=== PATIENT | female | born 1950 | race African-American/Black ===

== ENCOUNTER 2020-11-18 15:27 | Inpatient (IN) | payer MEDICARE, MEDICAID ==
[~2020-11-18] VITALS: Ht 160 cm; Wt 101.6 kg
[2020-11-18 16:40] LABS: BASOPHILS % 0.9 % (0.0-2.0); EOSINOPHILS % 3.6 % (0.0-5.0); HEMATOCRIT. 22.9 % (36.0-48.0); HEMOGLOBIN. 7.6 g/dL (12.0-16.0); LYMPHOCYTES % 28.4 % (20.0-50.0); MEAN CORPUSCULAR HEMOGLOBIN 28.3 pg (28.0-32.0); MEAN CORPUSCULAR VOLUME 85.4 fL (81.0-99.0); MEAN PLATELET VOLUME 7.7 fl (7.4-10.4); MONOCYTES % 7.3 % (2.0-8.0); NEUTROPHILS % 59.8 % (40.0-76.0); PLATELET 315 x1000/uL (130-400); RED BLOOD CELL COUNT 2.69 mill/uL (4.2-5.4); RED CELL DISTRIBUTION WIDTH 15.7 % (11.6-14.6)
[2020-11-18 16:49] LABS: CHLORIDE 109 mEq/L (98-107)
[2020-11-18 16:50] LABS: PARTIAL THROMBOPLASTIN TIME 31.6 sec (23.4-31.0); PROTHROMBIN TIME 10.4 sec (9.6-11.0)
[2020-11-18] MEDS ORDERED: SODIUM CHLORIDE 0.9% 1,000 ML IV ONE (17:30)
[2020-11-18] MEDS ORDERED: ACETAMINOPHEN 325MG TABLET PO ONE (18:15)
[2020-11-18] MEDS ORDERED: HYDROCODONE/ACETAMINOPHEN 10/325MG TABLET PO ONE (18:30)
[2020-11-18] MEDS: SODIUM CHLORIDE 0.45% 1,000 ML IV SCH ×2 (19:15→20:40)
[2020-11-18] MEDS ORDERED: ACETAMINOPHEN 325MG TABLET PO PRN (19:15)
[2020-11-18] MEDS ORDERED: ONDANSETRON HCL 4MG/2ML INJ IV PRN (19:15)
[2020-11-18 19:33] LABS: TOTAL IRON BINDING CAPACITY 358 ug/dL (250-450)
[2020-11-18] MEDS: CLONIDINE 0.1MG TABLET PO PRN (20:39)
[2020-11-19] MEDS: HYDROCODONE/ACETAMINOPHEN 5/325MG TABLET PO PRN ×2 (05:03→11:33)
[2020-11-19 05:10] LABS: BASOPHILS % 0.8 % (0.0-2.0); HEMATOCRIT. 24.7 % (36.0-48.0); MEAN CORPUSCULAR HEMOGLOBIN 27.4 pg (28.0-32.0); MEAN CORPUSCULAR VOLUME 84.1 fL (81.0-99.0); MONOCYTES % 9.3 % (2.0-8.0); NEUTROPHILS % 54.9 % (40.0-76.0); PLATELET 275 x1000/uL (130-400); RED BLOOD CELL COUNT 2.93 mill/uL (4.2-5.4)
[2020-11-19 05:13] LABS: CHLORIDE 110 mEq/L (98-107)
[2020-11-19 05:28] LABS: LDL CHOLESTEROL 31 mg/dL (5-100)
[2020-11-19 05:29] LABS: HDL CHOLESTEROL 81 mg/dL (40-59)
[2020-11-19 09:30] VITALS: BP 134/68
[2020-11-19] MEDS ORDERED: *PATIENT'S OWN MEDICATION STORAGE XX SCH (11:15)
[2020-11-19 12:00] VITALS: BP 176/80
[2020-11-19] MEDS ORDERED: ESOM40CA53 MT (12:11)
[2020-11-19] MEDS ORDERED: QUET300T2 MT (12:11)
[2020-11-19] MEDS ORDERED: HYDR25TA MT (12:11)
[2020-11-19] MEDS ORDERED: LOSA100T32 MT (12:11)
[2020-11-19] MEDS ORDERED: TIZA4TAB5 MT (12:11)
[2020-11-19] MEDS ORDERED: HYDR-4001 PO (12:11)
[2020-11-19] MEDS ORDERED: HYDR100T26 PO (12:11)
[2020-11-19] MEDS ORDERED: CRES10 MT (12:11)
[2020-11-19] MEDS ORDERED: BUPR100T13 PO (12:11)
[2020-11-19] MEDS ORDERED: CLON2TAB21 MT (12:11)
[2020-11-19] MEDS: CLONIDINE 0.1MG TABLET PO PRN (13:17)
[2020-11-19] MEDS: FERROUS SULFATE 325MG TABLET PO SCH ×2 (13:17→18:55)
[2020-11-19] MEDS: SODIUM CHLORIDE 0.45% 1,000 ML IV SCH (13:18)
[2020-11-19 16:00] VITALS: BP 136/51
[2020-11-19] MEDS: AMLODIPINE 5MG TABLET PO SCH (18:56)
[2020-11-19 20:00] VITALS: BP 146/66
[2020-11-19] MEDS ORDERED: QUETIAPINE FUMARATE 50MG TABLET PO SCH (21:00)
[2020-11-19] MEDS ORDERED: CLONAZEPAM 1MG TABLET PO SCH (21:00)
[2020-11-20] VITALS: BP 143/98
[2020-11-20 04:00] VITALS: BP 135/63
[2020-11-20] MEDS: SODIUM CHLORIDE 0.45% 1,000 ML IV SCH (04:43)
[2020-11-20] MEDS: HYDROCODONE/ACETAMINOPHEN 5/325MG TABLET PO PRN ×2 (06:20→12:28)
[2020-11-20 07:22] LABS: FOLIC ACID (FOLATE) SERUM 6.8 ng/mL (>5.38)
[2020-11-20 08:00] VITALS: BP 125/74
[2020-11-20] MEDS: FERROUS SULFATE 325MG TABLET PO SCH ×2 (08:15→12:14)
[2020-11-20] MEDS: AMLODIPINE 5MG TABLET PO SCH (08:15)
[2020-11-20] MEDS ORDERED: ASCORBIC ACID 500 MG TABLET PO SCH (11:45)
[2020-11-20 12:00] VITALS: BP 135/63
[2020-11-20 13:11] LABS: EOSINOPHILS % 4.5 % (0.0-5.0); HEMATOCRIT. 25.8 % (36.0-48.0); HEMOGLOBIN. 8.5 g/dL (12.0-16.0); LYMPHOCYTES % 36.5 % (20.0-50.0); MEAN PLATELET VOLUME 7.2 fl (7.4-10.4); MONOCYTES % 10.4 % (2.0-8.0); NEUTROPHILS % 47.6 % (40.0-76.0); PLATELET 290 x1000/uL (130-400); RED BLOOD CELL COUNT 3.03 mill/uL (4.2-5.4); RED CELL DISTRIBUTION WIDTH 15.9 % (11.6-14.6)
[2020-11-20 13:23] VITALS: BP 125/72
[2020-11-20 16:00] VITALS: BP 140/61
== END 2020-11-20 17:10 | disposition home or self-care (01) | DRG 812 ==
LOC: ER 15:27 → MICUSO 19:23 → EDBEDREQTM 19:25 → EDBEDREQ 19:25 → EDBEDREQSVC 19:25 → 6EST 11-19 07:11
PROVIDERS: ADMIT Internal Medicine Nephrology; ATTEND Internal Medicine Nephrology
PROC: 30233N1 Transfusion of Nonautologous Red Blood Cells into Peripheral Vein, Percutaneous Approach (ICD-10-PCS; principal; 2020-11-18)
DX: D50.9 Iron deficiency anemia, unspecified (principal); N18.4 Chronic kidney disease, stage 4 (severe); E83.51 Hypocalcemia; E88.09 Other disorders of plasma-protein metabolism, not elsewhere classified; E78.5 Hyperlipidemia, unspecified; I12.9 Hypertensive chronic kidney disease with stage 1 through stage 4 chronic kidney disease, or unspecified chronic kidney disease; E78.00 Pure hypercholesterolemia, unspecified; Z79.899 Other long term (current) drug therapy; Z96.653 Presence of artificial knee joint, bilateral; D63.1 Anemia in chronic kidney disease
CPT/HCPCS: 36415; 71045; 80053; 80061; 82270; 82607; 82728; 82746; 83540; 83550; 84484; 85025; 85044; 86850; 86900; 86920; 93005; 93306; 93970; 97161; 97166; 99291; J2405; J7030; P9016

== ENCOUNTER → 2021-01-31 | Outpatient (CLI) | payer MEDICARE, MEDICAID ==
[~2021-01-31] MED LIST: BUPR100T13 PO; CLON2TAB21 MT; CRES10 MT; ESOM40CA53 MT; HYDR-4001 PO; HYDR100T26 PO; HYDR25TA MT; LOSA100T32 MT; QUET300T2 MT; TIZA4TAB5 MT
== END | disposition home or self-care (01) ==
LOC: RAD 14:55
PROVIDERS: ATTEND Internal Medicine Hematology & Oncology
DX: M43.12 Spondylolisthesis, cervical region (principal); J44.9 Chronic obstructive pulmonary disease, unspecified; M47.814 Spondylosis without myelopathy or radiculopathy, thoracic region; M47.812 Spondylosis without myelopathy or radiculopathy, cervical region; I51.7 Cardiomegaly; D47.2 Monoclonal gammopathy; D63.1 Anemia in chronic kidney disease; N18.30 Chronic kidney disease, stage 3 unspecified; Z96.651 Presence of right artificial knee joint
CPT/HCPCS: 77075

== ENCOUNTER 2021-08-01 15:36 | Emergency (ER) | payer MEDICARE, MEDICAID ==
[~2021-08-01] VITALS: Ht 160 cm; Wt 97.0 kg
[2021-08-01 15:41] VITALS: BP 170/58
== END 2021-08-02 01:55 | disposition left against medical advice (07) ==
LOC: ER 15:36 → SUPCPDRO 20:47 → ER 08-02 01:55
DX: Z53.21 Procedure and treatment not carried out due to patient leaving prior to being seen by health care provider (principal)

== ENCOUNTER 2021-09-26 12:56 | Inpatient (IN) | payer MEDICARE, MEDICAID ==
[~2021-09-26] VITALS: Ht 162.6 cm; Wt 92.6 kg
[2021-09-26 14:45] LABS: BASOPHILS % 0.5 % (0.0-2.0); HEMATOCRIT. 34.4 % (36.0-48.0); HEMOGLOBIN. 11.4 g/dL (12.0-16.0); LYMPHOCYTES % 8.7 % (20.0-50.0); MEAN CORPUSCULAR HEMOGLOBIN 30.1 pg (28.0-32.0); MEAN CORPUSCULAR VOLUME 91.2 fL (81.0-99.0); MEAN PLATELET VOLUME 8.3 fl (7.4-10.4); MONOCYTES % 3.6 % (2.0-8.0); NEUTROPHILS % 87.2 % (40.0-76.0); PLATELET 246 x1000/uL (130-400); RED BLOOD CELL COUNT 3.77 mill/uL (4.2-5.4); RED CELL DISTRIBUTION WIDTH 17.6 % (11.6-14.6)
[2021-09-26 16:13] LABS: CHLORIDE 112 mEq/L (98-107)
[2021-09-26] MEDS ORDERED: DEXAMETHASONE 10 MG/ML VIAL IV NR (17:00)
[2021-09-26] MEDS ORDERED: VANCOMYCIN 1 G PREMIX 200 ML IV ONE (17:30)
[2021-09-26] MEDS ORDERED: PIPERACILLIN/TAZ 3.375G PREMIX 50 ML IV ONE (17:30)
[2021-09-26] MEDS ORDERED: AZITHROMYCIN 500 MG in DEXT 5% WATER 250 ML IV SCH (17:45)
[2021-09-26] MEDS ORDERED: NA PHOS,M-B/NA PHOS,DI-BA ENEMA 118ML PR PRN (17:45)
[2021-09-26] MEDS ORDERED: CEFTRIAXONE 1 G PREMIX 50 ML IV NR (17:45)
[2021-09-26] MEDS ORDERED: IPRATROPIUM/ALBUTEROL 0.5-3(2.5)MG/3ML NEB HHN PRN (17:45)
[2021-09-26] MEDS ORDERED: ENOXAPARIN 40MG/0.4ML SYR SUBCUT SCH (17:45)
[2021-09-26] MEDS ORDERED: DOCUSATE SODIUM 100MG CAPSULE PO PRN (17:45)
[2021-09-26] MEDS ORDERED: AZITHROMYCIN 500MG/250ML 250 ML IV NR (18:00)
[2021-09-26] MEDS: METHYLPREDNISOLONE SOD SUCC 125 MG/2 ML VIAL IV SCH (19:40)
[2021-09-26] MEDS: ENOXAPARIN 30MG/0.3ML SYR SUBCUT SCH (19:44)
[2021-09-26 20:49] LABS: CLARITY URINE CLOUDY (CLEAR); COLOR URINE YELLOW (YELLOW); KETONES URINE NEGATIVE (NEGATIVE); LEUKOCYTE ESTERASE URINE 1+ (NEGATIVE); NITRITE URINE NEGATIVE (NEGATIVE); OCCULT BLOOD URINE NEGATIVE (NEGATIVE); PROTEIN URINE 2+ (NEGATIVE); SPECIFIC GRAVITY URINE 1.021 (1.005-1.030)
[2021-09-27] VITALS: BP 144/58
[2021-09-27] MEDS ORDERED: BACL-141 (01:30)
[2021-09-27] MEDS ORDERED: DILT240C96 (01:30)
[2021-09-27] MEDS ORDERED: DICL75TA5 (01:30)
[2021-09-27] MEDS ORDERED: SUMA50TA16 (01:30)
[2021-09-27] MEDS ORDERED: CLON0.2T (01:30)
[2021-09-27] MEDS ORDERED: OXCA300T31 (01:30)
[2021-09-27] MEDS ORDERED: FAMO20TA8 (01:30)
[2021-09-27] MEDS ORDERED: MIRA50TA (01:30)
[2021-09-27] MEDS ORDERED: FURO20TA4 (01:30)
[2021-09-27] MEDS: METHYLPREDNISOLONE SOD SUCC 125 MG/2 ML VIAL IV SCH ×3 (02:22→11:41)
[2021-09-27 04:00] VITALS: BP 138/62
[2021-09-27 08:00] VITALS: BP 160/77
[2021-09-27] MEDS ORDERED: AZITHROMYCIN 500MG in DEXTROSE 5% WATER 250ML IV SCH (10:00)
[2021-09-27] MEDS ORDERED: CEFTRIAXONE 1,000 MG in DEXTROSE 5% WATER 50 ML IV SCH (11:00)
[2021-09-27 11:27] LABS: BASOPHILS % 0.4 % (0.0-2.0); HEMATOCRIT. 33.6 % (36.0-48.0); HEMOGLOBIN. 11.2 g/dL (12.0-16.0); LYMPHOCYTES % 8.2 % (20.0-50.0); MEAN CORPUSCULAR HEMOGLOBIN 30.6 pg (28.0-32.0); MEAN CORPUSCULAR VOLUME 91.7 fL (81.0-99.0); NEUTROPHILS % 88.4 % (40.0-76.0); PLATELET 277 x1000/uL (130-400); RED BLOOD CELL COUNT 3.67 mill/uL (4.2-5.4); RED CELL DISTRIBUTION WIDTH 18.4 % (11.6-14.6)
[2021-09-27 11:35] LABS: CHLORIDE 112 mEq/L (98-107)
[2021-09-27] MEDS: CLONIDINE 0.1MG TABLET PO PRN ×2 (11:45→18:01)
[2021-09-27 12:00] VITALS: BP 158/79
[2021-09-27] MEDS ORDERED: AMLODIPINE 5MG TABLET PO NR (13:45)
[2021-09-27] MEDS: DEXAMETHASONE 10 MG/ML VIAL IV SCH (13:54)
[2021-09-27] MEDS: FUROSEMIDE 40MG/4ML VIAL IVP SCH (13:54)
[2021-09-27] MEDS ORDERED: GUAIFENESIN-DM 200MG-20MG/10ML UDC PO PRN (14:15)
[2021-09-27 16:00] VITALS: BP 162/78
[2021-09-27] MEDS: CEFTRIAXONE 1,000 MG in DEXTROSE 5% WATER 50 ML IV SCH (18:02)
[2021-09-27] MEDS: ENOXAPARIN 30MG/0.3ML SYR SUBCUT SCH (18:02)
[2021-09-27] MEDS: ACETAMINOPHEN 325MG TABLET PO PRN (18:02)
[2021-09-27 20:00] VITALS: BP 154/71
[2021-09-27] MEDS: AZITHROMYCIN 500MG in DEXTROSE 5% WATER 250ML IV SCH (20:23)
[2021-09-27] MEDS: AMLODIPINE 5MG TABLET PO SCH (23:04)
[2021-09-28] VITALS: BP 143/63
[2021-09-28 04:00] VITALS: BP 147/70
[2021-09-28 08:00] VITALS: BP 158/80
[2021-09-28 08:30] LABS: HEMATOCRIT. 35.4 % (36.0-48.0); MEAN CORPUSCULAR HEMOGLOBIN 30.8 pg (28.0-32.0); MEAN CORPUSCULAR VOLUME 90.7 fL (81.0-99.0); MEAN PLATELET VOLUME 8.1 fl (7.4-10.4); PLATELET 348 x1000/uL (130-400); RED CELL DISTRIBUTION WIDTH 18.1 % (11.6-14.6)
[2021-09-28 08:38] LABS: CHLORIDE 114 mEq/L (98-107)
[2021-09-28] MEDS: FUROSEMIDE 40MG/4ML VIAL IVP SCH (08:42)
[2021-09-28] MEDS: DEXAMETHASONE 10 MG/ML VIAL IV SCH (08:42)
[2021-09-28] MEDS: AMLODIPINE 5MG TABLET PO SCH ×2 (08:43→20:57)
[2021-09-28 11:41] VITALS: BP 171/86
[2021-09-28] MEDS: CLONIDINE 0.1MG TABLET PO PRN (11:44)
[2021-09-28 15:48] VITALS: BP 175/81
[2021-09-28] MEDS: CEFTRIAXONE 1,000 MG in DEXTROSE 5% WATER 50 ML IV SCH (17:03)
[2021-09-28] MEDS: CLONIDINE 0.1MG TABLET PO SCH (17:03)
[2021-09-28] MEDS: ENOXAPARIN 30MG/0.3ML SYR SUBCUT SCH (17:03)
[2021-09-28 18:08] LABS: PLATELET ESTIMATE NORMAL
[2021-09-28] MEDS: AZITHROMYCIN 500MG in DEXTROSE 5% WATER 250ML IV SCH (20:00)
[2021-09-28] MEDS: ACETAMINOPHEN 325MG TABLET PO PRN (20:45)
[2021-09-29] VITALS: BP 130/75
[2021-09-29] MEDS: CLONIDINE 0.1MG TABLET PO SCH ×4 (02:00→21:07)
[2021-09-29 04:00] VITALS: BP 134/85
[2021-09-29 07:08] LABS: BASOPHILS % 0.1 % (0.0-2.0); HEMATOCRIT. 36.1 % (36.0-48.0); HEMOGLOBIN. 12.1 g/dL (12.0-16.0); LYMPHOCYTES % 7.7 % (20.0-50.0); MEAN CORPUSCULAR HEMOGLOBIN 30.6 pg (28.0-32.0); MEAN CORPUSCULAR VOLUME 91.2 fL (81.0-99.0); MONOCYTES % 6.8 % (2.0-8.0); NEUTROPHILS % 85.4 % (40.0-76.0); PLATELET 348 x1000/uL (130-400); RED BLOOD CELL COUNT 3.96 mill/uL (4.2-5.4); RED CELL DISTRIBUTION WIDTH 17.7 % (11.6-14.6)
[2021-09-29 08:00] VITALS: BP 165/87
[2021-09-29] MEDS: FUROSEMIDE 40MG/4ML VIAL IVP SCH (08:54)
[2021-09-29] MEDS: DEXAMETHASONE 10 MG/ML VIAL IV SCH (08:55)
[2021-09-29] MEDS: AMLODIPINE 5MG TABLET PO SCH ×2 (09:22→21:07)
[2021-09-29] MEDS: SODIUM CHLORIDE 0.45% 1,000 ML IV SCH ×2 (10:21→21:07)
[2021-09-29 12:00] VITALS: BP 136/66
[2021-09-29] MEDS: ACETAMINOPHEN 325MG TABLET PO PRN (14:44)
[2021-09-29 16:00] VITALS: BP 175/79
[2021-09-29] MEDS: ENOXAPARIN 40MG/0.4ML SYR SUBCUT SCH (17:00)
[2021-09-29] MEDS: CEFTRIAXONE 1,000 MG in DEXTROSE 5% WATER 50 ML IV SCH (18:23)
[2021-09-29 20:00] VITALS: BP 135/62
[2021-09-29] MEDS: AZITHROMYCIN 500MG in DEXTROSE 5% WATER 250ML IV SCH (21:06)
[2021-09-30] VITALS: BP 129/66
[2021-09-30 04:00] VITALS: BP 147/69
[2021-09-30] MEDS: CLONIDINE 0.1MG TABLET PO SCH ×3 (06:09→20:33)
[2021-09-30 08:23] LABS: BASOPHILS % 0.3 % (0.0-2.0); EOSINOPHILS % 0.1 % (0.0-5.0); HEMATOCRIT. 34.4 % (36.0-48.0); HEMOGLOBIN. 11.5 g/dL (12.0-16.0); LYMPHOCYTES % 11.4 % (20.0-50.0); MEAN CORPUSCULAR HEMOGLOBIN 30.5 pg (28.0-32.0); MEAN CORPUSCULAR VOLUME 91.2 fL (81.0-99.0); MEAN PLATELET VOLUME 7.6 fl (7.4-10.4); MONOCYTES % 5.1 % (2.0-8.0); NEUTROPHILS % 83.1 % (40.0-76.0); PLATELET 250 x1000/uL (130-400); RED BLOOD CELL COUNT 3.77 mill/uL (4.2-5.4); RED CELL DISTRIBUTION WIDTH 17.2 % (11.6-14.6)
[2021-09-30] MEDS: DEXAMETHASONE 10 MG/ML VIAL IV SCH (08:48)
[2021-09-30] MEDS: AMLODIPINE 5MG TABLET PO SCH ×2 (09:13→20:33)
[2021-09-30] MEDS ORDERED: POTASSIUM CHLORIDE 20MEQ/PACKET PO NR (09:45)
[2021-09-30 09:50] LABS: PHOSPHORUS 1.7 mg/dL (2.5-4.9)
[2021-09-30] MEDS: SODIUM CHLORIDE 0.45% 1,000 ML IV SCH (10:30)
[2021-09-30] MEDS: ACETAMINOPHEN 325MG TABLET PO PRN ×2 (11:03→20:35)
[2021-09-30 12:00] VITALS: BP 155/75
[2021-09-30] MEDS ORDERED: SODIUM PHOS,M-BASIC-D-BASIC 15 MM in DEXT 5% WATER 245 ML IV NR (14:30)
[2021-09-30 16:00] VITALS: BP 150/78
[2021-09-30] MEDS: CEFTRIAXONE 1,000 MG in DEXTROSE 5% WATER 50 ML IV SCH (17:06)
[2021-09-30] MEDS: ENOXAPARIN 40MG/0.4ML SYR SUBCUT SCH (17:08)
[2021-09-30 20:00] VITALS: BP 166/77
[2021-09-30] MEDS: AZITHROMYCIN 500MG in DEXTROSE 5% WATER 250ML IV SCH (20:32)
[2021-10-01] VITALS: BP 122/52
[2021-10-01] MEDS: SODIUM CHLORIDE 0.45% 1,000 ML IV SCH (01:52)
[2021-10-01 04:00] VITALS: BP 115/61
[2021-10-01] MEDS: FUROSEMIDE 40MG/4 ML UDC PO SCH ×2 (04:44→08:48)
[2021-10-01] MEDS: CLONIDINE 0.1MG TABLET PO SCH ×3 (06:07→21:32)
[2021-10-01 08:00] VITALS: BP 143/69
[2021-10-01 08:13] LABS: BASOPHILS % 0.2 % (0.0-2.0); HEMATOCRIT. 34.6 % (36.0-48.0); HEMOGLOBIN. 11.6 g/dL (12.0-16.0); LYMPHOCYTES % 9.7 % (20.0-50.0); MEAN CORPUSCULAR HEMOGLOBIN 30.3 pg (28.0-32.0); MEAN CORPUSCULAR VOLUME 90.4 fL (81.0-99.0); MEAN PLATELET VOLUME 7.9 fl (7.4-10.4); MONOCYTES % 3.3 % (2.0-8.0); NEUTROPHILS % 85.8 % (40.0-76.0); PLATELET 180 x1000/uL (130-400); RED BLOOD CELL COUNT 3.83 mill/uL (4.2-5.4); RED CELL DISTRIBUTION WIDTH 17.2 % (11.6-14.6)
[2021-10-01 08:31] LABS: CHLORIDE 109 mEq/L (98-107)
[2021-10-01 08:38] LABS: PHOSPHORUS 1.7 mg/dL (2.5-4.9)
[2021-10-01 08:40] LABS: BG BASE EXCESS 2.3 mmol/L (-2.0-2.0); BG CARBOXYHEMOGLOBIN 0.4 % (0.5-1.5); BG DEOXYHEMOGLOBIN 3.5 % (0.0-5.0); BG FRACTION INSPIRED OXYGEN 100; BG METHEMOGLOBIN 0.3 % (0.0-1.5); BG OXYGEN SATURATION 96.5 % (92.0-98.5); BG OXYHEMOGLOBIN 95.8 % (94.0-97.0); BG PCO2 37.4 mmHg (35.0-45.0); BG PO2 83.2 mmHg (75.0-100.0); BG SAMPLE SITE RIGHT RADIAL; BG TOTAL HEMOGLOBIN 12.7 g/dL (12.0-18.0); BG VENT MODE MASK - NRB
[2021-10-01] MEDS: AMLODIPINE 5MG TABLET PO SCH ×2 (08:48→21:32)
[2021-10-01] MEDS: DEXAMETHASONE 10 MG/ML VIAL IV SCH (08:48)
[2021-10-01] MEDS ORDERED: LOPERAMIDE HCL 2MG CAPSULE PO PRN (11:00)
[2021-10-01] MEDS: ACETAMINOPHEN 325MG TABLET PO PRN (11:01)
[2021-10-01 12:00] VITALS: BP 122/53
[2021-10-01] MEDS ORDERED: SODIUM PHOS,M-BASIC-D-BASIC 15 MM in DEXT 5% WATER 245 ML IV SCH (12:00)
[2021-10-01] MEDS: ENOXAPARIN 40MG/0.4ML SYR SUBCUT SCH (17:49)
[2021-10-01] MEDS: CEFTRIAXONE 1,000 MG in DEXTROSE 5% WATER 50 ML IV SCH (17:51)
[2021-10-01] MEDS: TRAMADOL 50MG TABLET PO PRN (17:52)
[2021-10-01 20:00] VITALS: BP 144/61
[2021-10-02 00:13] VITALS: BP 131/51
[2021-10-02 04:00] VITALS: BP 157/74
[2021-10-02] MEDS: CLONIDINE 0.1MG TABLET PO SCH ×3 (06:12→21:03)
[2021-10-02 08:00] VITALS: BP 114/60
[2021-10-02] MEDS: FUROSEMIDE 40MG/4 ML UDC PO SCH (08:26)
[2021-10-02] MEDS: AMLODIPINE 5MG TABLET PO SCH ×2 (08:26→21:04)
[2021-10-02] MEDS: DEXAMETHASONE 10 MG/ML VIAL IV SCH (08:26)
[2021-10-02 12:00] VITALS: BP 135/64
[2021-10-02 12:21] LABS: CHLORIDE 107 mEq/L (98-107); HEMATOCRIT. 36.6 % (36.0-48.0); HEMOGLOBIN. 11.9 g/dL (12.0-16.0); MEAN CORPUSCULAR HEMOGLOBIN 29.6 pg (28.0-32.0); MEAN CORPUSCULAR VOLUME 91.1 fL (81.0-99.0); MEAN PLATELET VOLUME 8.6 fl (7.4-10.4); PLATELET 131 x1000/uL (130-400); RED BLOOD CELL COUNT 4.02 mill/uL (4.2-5.4); RED CELL DISTRIBUTION WIDTH 17.1 % (11.6-14.6)
[2021-10-02 14:00] LABS: PLATELET ESTIMATE NORMAL
[2021-10-02] MEDS: TRAMADOL 50MG TABLET PO PRN (14:27)
[2021-10-02 16:00] VITALS: BP 134/65
[2021-10-02] MEDS: CEFTRIAXONE 1,000 MG in DEXTROSE 5% WATER 50 ML IV SCH (17:59)
[2021-10-02] MEDS: ENOXAPARIN 40MG/0.4ML SYR SUBCUT SCH (17:59)
[2021-10-02 20:00] VITALS: BP 134/59
[2021-10-03] VITALS: BP 136/72
[2021-10-03 04:00] VITALS: BP 146/71
[2021-10-03] MEDS: CLONIDINE 0.1MG TABLET PO SCH ×3 (06:32→21:32)
[2021-10-03 08:00] VITALS: BP 118/64
[2021-10-03] MEDS: FUROSEMIDE 40MG/4 ML UDC PO SCH (09:22)
[2021-10-03] MEDS: AMLODIPINE 5MG TABLET PO SCH ×2 (09:22→21:26)
[2021-10-03] MEDS: DEXAMETHASONE 10 MG/ML VIAL IV SCH (09:22)
[2021-10-03 11:08] LABS: BASOPHILS % 0.4 % (0.0-2.0); EOSINOPHILS % 2.9 % (0.0-5.0); HEMATOCRIT. 34.2 % (36.0-48.0); HEMOGLOBIN. 11.2 g/dL (12.0-16.0); LYMPHOCYTES % 9.6 % (20.0-50.0); MEAN CORPUSCULAR HEMOGLOBIN 29.8 pg (28.0-32.0); MEAN CORPUSCULAR VOLUME 91.4 fL (81.0-99.0); MEAN PLATELET VOLUME 9.1 fl (7.4-10.4); MONOCYTES % 5.2 % (2.0-8.0); NEUTROPHILS % 81.9 % (40.0-76.0); RED BLOOD CELL COUNT 3.75 mill/uL (4.2-5.4); RED CELL DISTRIBUTION WIDTH 17.3 % (11.6-14.6)
[2021-10-03 11:12] LABS: PLATELET 261 x1000/uL (130-400)
[2021-10-03 12:00] VITALS: BP 123/54
[2021-10-03] MEDS: TRAMADOL 50MG TABLET PO PRN (13:20)
[2021-10-03] MEDS ORDERED: NALOXONE HCL 0.4MG/ML VIAL IV PRN (13:45)
[2021-10-03 16:00] VITALS: BP 130/58
[2021-10-03] MEDS: ENOXAPARIN 40MG/0.4ML SYR SUBCUT SCH (18:53)
[2021-10-03 20:00] VITALS: BP 135/50
[2021-10-03] MEDS: HYDROCODONE/ACETAMINOPHEN 5/325MG TABLET PO PRN (21:28)
[2021-10-04] VITALS: BP 133/54
[2021-10-04 04:00] VITALS: BP 122/62
[2021-10-04] MEDS: CLONIDINE 0.1MG TABLET PO SCH ×3 (06:31→22:00)
[2021-10-04 08:02] VITALS: BP 111/63
[2021-10-04] MEDS: FUROSEMIDE 40MG/4 ML UDC PO SCH (08:47)
[2021-10-04] MEDS: DEXAMETHASONE 10 MG/ML VIAL IV SCH (08:47)
[2021-10-04] MEDS: AMLODIPINE 5MG TABLET PO SCH ×2 (08:48→20:52)
[2021-10-04 12:34] VITALS: BP 122/50
[2021-10-04] MEDS: MAGNESIUM/ALUMINUM HYDROXIDE/SIMETHICONE 30ML UDC PO PRN (12:45)
[2021-10-04 15:42] VITALS: BP 119/66
[2021-10-04] MEDS: HYDROCODONE/ACETAMINOPHEN 5/325MG TABLET PO PRN (16:07)
[2021-10-04] MEDS: ENOXAPARIN 40MG/0.4ML SYR SUBCUT SCH (17:14)
[2021-10-04 20:00] VITALS: BP 109/46
[2021-10-04 21:00] LABS: BASOPHILS % 0.3 % (0.0-2.0); EOSINOPHILS % 0.3 % (0.0-5.0); HEMATOCRIT. 33.8 % (36.0-48.0); LYMPHOCYTES % 7.2 % (20.0-50.0); MEAN CORPUSCULAR VOLUME 91.7 fL (81.0-99.0); MEAN PLATELET VOLUME 9.4 fl (7.4-10.4); MONOCYTES % 5.7 % (2.0-8.0); NEUTROPHILS % 86.5 % (40.0-76.0); PLATELET 306 x1000/uL (130-400); RED BLOOD CELL COUNT 3.68 mill/uL (4.2-5.4); RED CELL DISTRIBUTION WIDTH 16.8 % (11.6-14.6)
[2021-10-04 21:12] LABS: PHOSPHORUS 2.9 mg/dL (2.5-4.9)
[2021-10-05] VITALS: BP 111/56
[2021-10-05 04:00] VITALS: BP 117/61
[2021-10-05] MEDS: CLONIDINE 0.1MG TABLET PO SCH ×3 (06:04→20:20)
[2021-10-05 08:00] VITALS: BP 107/48
[2021-10-05] MEDS: AMLODIPINE 5MG TABLET PO SCH ×2 (09:00→20:20)
[2021-10-05] MEDS: FUROSEMIDE 40MG/4 ML UDC PO SCH (11:46)
[2021-10-05] MEDS: DEXAMETHASONE 10 MG/ML VIAL IV SCH (11:47)
[2021-10-05 12:00] VITALS: BP 151/71
[2021-10-05] MEDS: SODIUM CHLORIDE 0.9% 1,000 ML IV SCH (15:00)
[2021-10-05 16:00] VITALS: BP 143/53
[2021-10-05] MEDS: ENOXAPARIN 40MG/0.4ML SYR SUBCUT SCH (16:18)
[2021-10-05 20:00] VITALS: BP 127/62
[2021-10-05] MEDS: MAGNESIUM/ALUMINUM HYDROXIDE/SIMETHICONE 30ML UDC PO PRN (20:19)
[2021-10-06] VITALS: BP 116/62
[2021-10-06] MEDS: SODIUM CHLORIDE 0.9% 1,000 ML IV SCH (01:55)
[2021-10-06 04:00] VITALS: BP 108/68
[2021-10-06] MEDS: CLONIDINE 0.1MG TABLET PO SCH ×3 (06:00→20:52)
[2021-10-06 06:07] LABS: BASOPHILS % 0.1 % (0.0-2.0); EOSINOPHILS % 0.5 % (0.0-5.0); HEMATOCRIT. 30.1 % (36.0-48.0); HEMOGLOBIN. 10.3 g/dL (12.0-16.0); LYMPHOCYTES % 10.8 % (20.0-50.0); MEAN CORPUSCULAR HEMOGLOBIN 31.2 pg (28.0-32.0); MEAN CORPUSCULAR VOLUME 91.5 fL (81.0-99.0); MEAN PLATELET VOLUME 9.1 fl (7.4-10.4); MONOCYTES % 9.6 % (2.0-8.0); PLATELET 324 x1000/uL (130-400); RED CELL DISTRIBUTION WIDTH 17.1 % (11.6-14.6)
[2021-10-06 06:13] LABS: CHLORIDE 113 mEq/L (98-107)
[2021-10-06 08:00] VITALS: BP 114/51
[2021-10-06] MEDS: FUROSEMIDE 40MG/4 ML UDC PO SCH (09:33)
[2021-10-06] MEDS: DEXAMETHASONE 10 MG/ML VIAL IV SCH (09:33)
[2021-10-06] MEDS: AMLODIPINE 5MG TABLET PO SCH ×2 (09:34→20:52)
[2021-10-06 12:00] VITALS: BP 136/58
[2021-10-06 16:00] VITALS: BP 155/47
[2021-10-06] MEDS: ENOXAPARIN 40MG/0.4ML SYR SUBCUT SCH (17:35)
[2021-10-06 20:00] VITALS: BP 148/59
[2021-10-06] MEDS: MAGNESIUM/ALUMINUM HYDROXIDE/SIMETHICONE 30ML UDC PO PRN (20:52)
[2021-10-07] VITALS: BP 133/53
[2021-10-07 04:00] VITALS: BP 110/68
[2021-10-07 05:22] LABS: BASOPHILS % 0.3 % (0.0-2.0); EOSINOPHILS % 0.6 % (0.0-5.0); HEMATOCRIT. 29.3 % (36.0-48.0); LYMPHOCYTES % 13.9 % (20.0-50.0); MEAN CORPUSCULAR HEMOGLOBIN 31.3 pg (28.0-32.0); MEAN CORPUSCULAR VOLUME 91.5 fL (81.0-99.0); MEAN PLATELET VOLUME 9.1 fl (7.4-10.4); MONOCYTES % 8.7 % (2.0-8.0); NEUTROPHILS % 76.5 % (40.0-76.0); PLATELET 338 x1000/uL (130-400); RED CELL DISTRIBUTION WIDTH 17.4 % (11.6-14.6)
[2021-10-07] MEDS: CLONIDINE 0.1MG TABLET PO SCH ×3 (06:00→21:28)
[2021-10-07 06:47] LABS: CHLORIDE 112 mEq/L (98-107)
[2021-10-07 07:01] LABS: PHOSPHORUS 2.1 mg/dL (2.5-4.9)
[2021-10-07 08:00] VITALS: BP 127/53
[2021-10-07] MEDS: ENOXAPARIN 30MG/0.3ML SYR SUBCUT SCH ×2 (08:43→20:28)
[2021-10-07] MEDS: DEXAMETHASONE 10 MG/ML VIAL IV SCH (08:43)
[2021-10-07] MEDS: AMLODIPINE 5MG TABLET PO SCH ×2 (08:43→20:28)
[2021-10-07 12:00] VITALS: BP 132/51
[2021-10-07] MEDS ORDERED: IPRATROPIUM/ALBUTEROL 0.5-3(2.5)MG/3ML NEB HHN PRN (13:45)
[2021-10-07 15:55] VITALS: BP 121/50
[2021-10-07 20:00] VITALS: BP 110/60
[2021-10-07] MEDS: MAGNESIUM/ALUMINUM HYDROXIDE/SIMETHICONE 30ML UDC PO PRN (20:27)
[2021-10-08] VITALS: BP 129/52
[2021-10-08] MEDS: HYDROCODONE/ACETAMINOPHEN 5/325MG TABLET PO PRN ×2 (00:01→12:38)
[2021-10-08 04:00] VITALS: BP 138/59
[2021-10-08] MEDS: CLONIDINE 0.1MG TABLET PO SCH ×2 (05:34→15:23)
[2021-10-08] MEDS: IPRATROPIUM/ALBUTEROL 0.5-3(2.5)MG/3ML NEB HHN SCH ×2 (06:00→12:49)
[2021-10-08 08:00] VITALS: BP 159/77
[2021-10-08 12:00] VITALS: BP 154/72
[2021-10-08] MEDS: ENOXAPARIN 30MG/0.3ML SYR SUBCUT SCH (12:20)
[2021-10-08] MEDS: AMLODIPINE 5MG TABLET PO SCH (12:21)
[2021-10-08 15:59] VITALS: BP 154/72
[2021-10-08 16:00] VITALS: BP 142/75
== END 2021-10-08 17:20 | disposition home or self-care (01) | DRG 871 ==
LOC: ER 13:06 → 7WST 17:19 → EDBEDREQ 17:29 → EDBEDREQTM 17:29 → EDBEDREQSVC 17:50 → ENRESERV 21:30 → 8WST 10-07 18:21
PROVIDERS: ADMIT Internal Medicine Nephrology; ATTEND Internal Medicine Nephrology
PROC: 05HY33Z Insertion of Infusion Device into Upper Vein, Percutaneous Approach (ICD-10-PCS; principal; 2021-09-28)
PROC: B54MZZA Ultrasonography of Right Upper Extremity Veins, Guidance (ICD-10-PCS; 2021-09-28)
DX: A41.89 Other specified sepsis (principal); E43 Unspecified severe protein-calorie malnutrition; J12.82 Pneumonia due to coronavirus disease 2019; J96.01 Acute respiratory failure with hypoxia; U07.1 COVID-19; N17.9 Acute kidney failure, unspecified; N39.0 Urinary tract infection, site not specified; I13.0 Hypertensive heart and chronic kidney disease with heart failure and stage 1 through stage 4 chronic kidney disease, or unspecified chronic kidney disease; K92.1 Melena; E66.9 Obesity, unspecified; E78.5 Hyperlipidemia, unspecified; F32.A Depression, unspecified; G25.81 Restless legs syndrome; I27.20 Pulmonary hypertension, unspecified; I50.9 Heart failure, unspecified; N18.9 Chronic kidney disease, unspecified; R74.01 Elevation of levels of liver transaminase levels; Z96.653 Presence of artificial knee joint, bilateral; E78.00 Pure hypercholesterolemia, unspecified; I36.1 Nonrheumatic tricuspid (valve) insufficiency; Z79.899 Other long term (current) drug therapy; Z68.35 Body mass index [BMI] 35.0-35.9, adult
CPT/HCPCS: 36415; 36600; 71045; 76937; 80048; 80053; 81003; 82270; 82375; 82728; 82805; 82962; 83036; 83605; 83615; 83735; 84100; 84145; 84484; 85025; 85379; 86140; 87426; 93005; 93306; 99285; C1725; J0456; J0696; J1100; J1650; J1940; J2543; J2930; J3370; J3490; J7030; J7060

== ENCOUNTER 2021-12-26 22:41 | Emergency (ER) | payer MEDICARE, MEDICAID ==
[~2021-12-26] VITALS: Ht 172.7 cm; Wt 105.0 kg
[~2021-12-26 22:41] MED LIST changes: +BACL-141; +CLON0.2T; +DICL75TA5; +DILT240C96; +FAMO20TA8; +FURO20TA4; +MIRA50TA; +OXCA300T31; +SUMA50TA16
[2021-12-26] MEDS ORDERED: SODIUM CHLORIDE 0.9% 1,000 ML IV ONE (22:45)
[2021-12-26] MEDS ORDERED: ONDANSETRON HCL 4MG/2ML INJ IV ONE (22:45)
[2021-12-26] MEDS ORDERED: NALOXONE HCL 1 MG/ML 2ML VIAL IV ONE (22:45)
[2021-12-26 23:48] LABS: BASOPHILS % 0.7 % (0.0-2.0); EOSINOPHILS % 2.2 % (0.0-5.0); HEMATOCRIT. 34.9 % (36.0-48.0); HEMOGLOBIN. 11.6 g/dL (12.0-16.0); LYMPHOCYTES % 44.4 % (20.0-50.0); MEAN CORPUSCULAR HEMOGLOBIN 30.6 pg (28.0-32.0); MEAN CORPUSCULAR VOLUME 92.6 fL (81.0-99.0); MEAN PLATELET VOLUME 7.7 fl (7.4-10.4); MONOCYTES % 9.6 % (2.0-8.0); NEUTROPHILS % 43.1 % (40.0-76.0); PLATELET 245 x1000/uL (130-400); RED BLOOD CELL COUNT 3.77 mill/uL (4.2-5.4); RED CELL DISTRIBUTION WIDTH 16.3 % (11.6-14.6)
[2021-12-26 23:50] LABS: CHLORIDE 112 mEq/L (98-107)
[2021-12-26 23:54] LABS: ETHANOL BLOOD 48 mg/dL
[2021-12-26 23:59] LABS: CREATINE KINASE 55 IU/L (26-192)
[2021-12-27] MEDS ORDERED: POTASSIUM CHLORIDE INJ 30 MEQ in DEXT 5%/0.9% NACL 1,000 ML IV NR (02:00)
[2021-12-27 04:34] LABS: CLARITY URINE CLEAR (CLEAR); COLOR URINE YELLOW (YELLOW); KETONES URINE NEGATIVE (NEGATIVE); LEUKOCYTE ESTERASE URINE 2+ (NEGATIVE); NITRITE URINE NEGATIVE (NEGATIVE); OCCULT BLOOD URINE NEGATIVE (NEGATIVE); PROTEIN URINE NEGATIVE (NEGATIVE); SPECIFIC GRAVITY URINE 1.016 (1.005-1.030); UROBILINOGEN URINE 0.2 E.U./dL (0.2-1.0)
[2021-12-27 04:42] LABS: *BARBITURATES SCREEN URINE NEGATIVE (NEGATIVE); *BENZODIAZEPINES SCREEN URINE NEGATIVE (NEGATIVE); *COCAINE SCREEN URINE NEGATIVE (NEGATIVE)
[2021-12-27 04:43] LABS: *AMPHETAMINES SCREEN URINE NEGATIVE (NEGATIVE); CANNABINOID URINE SCREEN PRESUMTIVE POSITIVE (NEGATIVE); METHADONE URINE SCREEN NEGATIVE (NEGATIVE); OPIATES URINE SCREEN PRESUMTIVE POSITIVE (NEGATIVE); PHENCYCLIDINE URINE SCREEN NEGATIVE (NEGATIVE)
[2021-12-27 07:50] VITALS: BP 115/59
== END 2021-12-27 10:52 | disposition home or self-care (01) ==
LOC: ER 22:41
DX: T43.591A Poisoning by other antipsychotics and neuroleptics, accidental (unintentional), initial encounter (principal); T46.5X1A Poisoning by other antihypertensive drugs, accidental (unintentional), initial encounter; F10.129 Alcohol abuse with intoxication, unspecified; E87.6 Hypokalemia; F32.A Depression, unspecified; E78.00 Pure hypercholesterolemia, unspecified; I10 Essential (primary) hypertension; Y90.2 Blood alcohol level of 40-59 mg/100 ml; Z96.659 Presence of unspecified artificial knee joint; Y92.018 Other place in single-family (private) house as the place of occurrence of the external cause
CPT/HCPCS: 36415; 71045; 80053; 80305; 80320; 81003; 82140; 82550; 82962; 83690; 83735; 85025; 96361; 96365; 96375; 99285; J2310; J2405; J3480; J7030; J7042; G0480

== ENCOUNTER → 2023-08-18 | Outpatient (CLI) | payer MEDICARE, MEDICAID ==
[~2023-08-18] MED LIST changes: +ALBU18HF2 PO; +ASPI-1406 PO; -BACL-141; +BACL-141 PO; +BARIUM SULFATE 450ML ORAL SUSP ONE; +BUPR-46 PO; -BUPR100T13 PO; -CLON0.2T; +CLON0.2T PO; -CLON2TAB21 MT; -CRES10 MT; +DAPA5TAB PO; -DICL75TA5; +DICL75TA5 PO; -DILT240C96; +DILT240C96 PO; -ESOM40CA53 MT; -FAMO20TA8; +FAMO20TA8 PO; +FLUT16SP15 NS; -FURO20TA4; +FURO20TA4 PO; -HYDR-4001 PO; +HYDR-4009 PO; -HYDR25TA MT; +LINA72CA PO; -LOSA100T32 MT; +LOSA100T33 MT; +METF-414 PO; +METO25TA6 PO; -MIRA50TA; +MIRA50TA PO; +OMEP40CA20 PO; -OXCA300T31; +OXCA300T31 PO; -QUET300T2 MT; +QUET300T20 PO; +ROSU20TA2 PO; -SUMA50TA16; +TIZA-204 MT; -TIZA4TAB5 MT
== END | disposition home or self-care (01) ==
LOC: CT 10:35
PROVIDERS: ATTEND Internal Medicine Gastroenterology
DX: D73.89 Other diseases of spleen (principal); K92.2 Gastrointestinal hemorrhage, unspecified; I70.0 Atherosclerosis of aorta; K75.3 Granulomatous hepatitis, not elsewhere classified
CPT/HCPCS: 74176

== ENCOUNTER → 2023-10-06 | Outpatient (CLI) | payer MEDICARE, MEDICAID ==
[~2023-10-06] MED LIST changes: -BARIUM SULFATE 450ML ORAL SUSP ONE
== END | disposition home or self-care (01) ==
LOC: RAD 13:28
PROVIDERS: ATTEND Internal Medicine Hematology & Oncology
DX: D47.2 Monoclonal gammopathy (principal); D50.0 Iron deficiency anemia secondary to blood loss (chronic); N18.31 Chronic kidney disease, stage 3a; D63.1 Anemia in chronic kidney disease
CPT/HCPCS: 77075

== ENCOUNTER → 2024-06-14 | Day surgery (SDC) | payer OTHER, MEDICAID ==
[~2024-06-14] MED LIST changes: -BUPR-46 PO; +HYDR100T11 PO; -HYDR100T26 PO; +LIDOCAINE HCL 1% 10 MG/ML 10ML VIAL ONE; -LOSA100T33 MT; -QUET300T20 PO
== END | disposition home or self-care (01) ==
LOC: RADANGIO 12:34
PROVIDERS: ATTEND Internal Medicine Hematology & Oncology
DX: Z45.2 Encounter for adjustment and management of vascular access device (principal); T80.810A Extravasation of vesicant antineoplastic chemotherapy, initial encounter; I87.1 Compression of vein; Z79.82 Long term (current) use of aspirin; Z79.84 Long term (current) use of oral hypoglycemic drugs; Z79.899 Other long term (current) drug therapy; Z98.890 Other specified postprocedural states; X58.XXXA Exposure to other specified factors, initial encounter; Y93.89 Activity, other specified; Y92.89 Other specified places as the place of occurrence of the external cause; Y99.8 Other external cause status
CPT/HCPCS: 36573; J3490; C1725; C1769; C1751; L8514